=== PATIENT | female | born 1985 | race American Indian/Alaskan Native ===

== ENCOUNTER 2017-11-07 19:55 | Emergency (ER) | payer SELFPAY ==
[2017-11-07 22:30] LABS: Basophils % (Auto) 0.4 % (0.0-1.8); Eosinophils % (Auto) 0.6 % (0.0-4.3); Hematocrit 41.3 % (30.3-42.9); Hemoglobin 13.9 gm/dl (10.1-14.3); Lymphocytes # (Auto) 1.2 K/mm3 (1.2-5.4); Mean Corpuscular HGB Conc 34 % (30-34); Mean Corpuscular Hemoglobin 31 pg (28-32); Mean Corpuscular Volume 91 fl (79-97); Monocytes # (Auto) 0.5 K/mm3 (0.0-0.8); Monocytes % (Auto) 6.8 % (0.0-7.3); Platelet Count 288 K/mm3 (140-440); Red Blood Count 4.54 M/mm3 (3.65-5.03); Red Cell Distribution Width 12.8 % (13.2-15.2)
[2017-11-07 22:42] LABS: Alanine Aminotransferase 11 units/L (7-56); Albumin 4.4 g/dL (3.9-5); BUN/Creatinine Ratio 15; Blood Urea Nitrogen 9 mg/dL (7-17); Calcium 9.3 mg/dL (8.4-10.2); Hemolysis Index 8
[2017-11-07 22:58] LABS: Bacteria,Urine 1+ /HPF (Negative); Bilirubin,Urine NEG (Negative); Blood,Urine MOD (Negative); Color,Urine Yellow (Yellow); Mucus,Urine FEW /HPF; Nitrite,Urine NEG (Negative); Protein,Urine <15 mg/dL mg/dL (Negative); Urobilinogen,Urine < 2.0 mg/dL (<2.0)
[2017-11-08] MEDS ORDERED: MOTRIN ONE (01:17)
[2017-11-08] MEDS ORDERED: MOTRIN PO ONE (01:23)
[2017-11-08] MEDS ORDERED: ZOFRAN IV ONE (02:00)
[2017-11-08] MEDS ORDERED: REGLAN IV ONE (02:00)
[2017-11-08] MEDS ORDERED: BENADRYL IV ONE (02:00)
[2017-11-08] MEDS ORDERED: ZOFRAN ONE (02:03)
[2017-11-08] MEDS ORDERED: BENADRYL ONE (02:03)
[2017-11-08] MEDS ORDERED: REGLAN ONE (02:03)
--- NOTE | 2017-11-08 03:04 | Emergency Department Report ---
Minor Respiratory - HPI Chief Complaint: Upper Respiratory Infection Stated Complaint: BODY PAIN VOMITING/COUGH/DELCID Time Seen by Provider: 11/08/17 02:34 Duration: 3 Days Severity: moderate Minor Respiratory: Yes Able to Tolerate Fluids, Yes Cough, Yes Fever, No Rhinorrhea, No Sore Throat, No Ear Pain, No Sick Contacts, No Hemoptysis, No Chest Pain, No Shortness of Breath ED Review of Systems ROS: Stated complaint: BODY PAIN VOMITING/COUGH/DELCID Other details as noted in HPI Constitutional: denies: chills, fever Eyes: denies: eye pain, eye discharge, vision change ENT: denies: ear pain, throat pain Respiratory: cough. denies: shortness of breath, wheezing Cardiovascular: denies: chest pain, palpitations Endocrine: no symptoms reported Gastrointestinal: denies: abdominal pain, nausea, diarrhea Genitourinary: denies: urgency, dysuria, discharge Musculoskeletal: denies: back pain, joint swelling, arthralgia Skin: denies: rash, lesions Neurological: denies: headache, weakness, paresthesias Psychiatric: denies: anxiety, depression Hematological/Lymphatic: denies: easy bleeding, easy bruising ED Past Medical Hx - Past Medical History Hx Hypertension: No Hx Diabetes: No Hx Deep Vein Thrombosis: No Hx Renal Disease: No Hx Sickle Cell Disease: No Hx Headaches / Migraines: Yes (migraines) Hx Seizures: No Hx Asthma: No Hx HIV: No - Surgical History Past Surgical History?: Yes Additional Surgical History: Tubes tied 2015 - Social History Smoking Status: Never Smoker Substance Use Type: None - Medications Home Medications: Home Medications Medication Instructions Recorded Confirmed Last Taken Type Ibuprofen [Motrin 800 MG tab] 800 mg PO PRN PRN 10/19/15 10/20/15 10/17/15 History Norgestimate-Ethinyl Estradiol 1 tab PO DAILY 10/19/15 10/20/15 10/18/15 History [Sprintec 28 Day Tablet] Tramadol HCl [traMADol] 50 mg PO PRN PRN 10/19/15 10/20/15 10/18/15 History Ibuprofen [Motrin] 800 mg PO Q8HR PRN #30 tablet 11/08/17 Unknown Rx Nitrofurantoin Monohyd/M-Cryst 100 mg PO BID #14 capsule 11/08/17 Unknown Rx [Macrobid 100 mg Capsule] guaiFENesin [Robitussin] 200 mg PO Q4HR #80 ml 11/08/17 Unknown Rx Minor Respiratory Exam - Exam General: Vital signs noted. No distress. Alert and acting appropriately. HEENT: Yes Moist Mucous Membranes, No Pharyngeal Erythema, No Pharyngeal Exudates, No Rhinorrhea, No Conjuctival Injection, No Frontal Tenderness, No Maxillary Tenderness Ear: Neither TM Bulge, Neither TM Erythema, Neither EAC Pain, Neither EAC Discharge Neck: Yes Supple, No Adenopathy Lungs: Yes Good Air Exchange, No Wheezes, No Ronchi, No Stridor, No Cough, No Labored Respirations, No Retractions, No Use of Accessory Muscles, No Other Abnormal Lung Sounds Heart: Yes Regular, No Murmur Abdomen: Yes Normal Bowel Sounds, No Tenderness, No Peritoneal Signs Skin: No Rash, No Edema Neurologic: Alert and oriented, no deficits. Musculoskeletal: Unremarkable. ED Course Vital Signs 11/07/17 11/07/17 21:55 22:00 Temperature 99.7 F H 99.7 F H Pulse Rate 119 H 119 H Respiratory 22 Rate Blood Pressure 144/98 Blood Pressure 144/98 [Left] O2 Sat by Pulse 99 99 Oximetry ED Medical Decision Making - Lab Data Result diagrams: 11/07/17 22:09 11/07/17 22:09 Temp Pulse Resp BP Pulse Ox 99.7 F H 119 H 22 144/98 99 11/07/17 22:00 11/07/17 22:00 11/07/17 22:00 11/07/17 22:00 11/07/17 22:00 Laboratory Tests 11/07/17 11/07/17 11/07/17 22:09 22:09 Unknown WBC 6.7 RBC 4.54 Hgb 13.9 Hct 41.3 MCV 91 MCH 31 MCHC 34 RDW 12.8 L Plt Count 288 Lymph % (Auto) 18.0 [place] % (Auto) 6.8 Eos % (Auto) 0.6 Baso % (Auto) 0.4 Lymph # 1.2 [place] # 0.5 Eos # 0.0 Baso # 0.0 Seg Neutrophils % 74.2 H Seg Neutrophils # 5.0 Sodium 136 L Potassium 3.4 L Chloride 99.9 Carbon Dioxide 23 Anion Gap 17 BUN 9 Creatinine 0.6 L Estimated GFR > 60 BUN/Creatinine Ratio 15 Glucose 115 H Calcium 9.3 Total Bilirubin 0.30 AST 11 ALT 11 Alkaline Phosphatase 53 Total Protein 7.5 Albumin 4.4 Albumin/Globulin Ratio 1.4 Urine Color Yellow Urine Turbidity Clear Urine pH 6.0 Ur Specific [place] 1.023 Urine Protein <15 mg/dl Urine Glucose (UA) Neg Urine Ketones Neg Urine Blood Mod Urine Nitrite Neg Ur Reducing Substances Not Reportable Urine Bilirubin Neg Urine Ictotest Not Reportable Urine Urobilinogen < 2.0 Ur Leukocyte Esterase Lg Urine WBC (Auto) 55.0 H Urine RBC (Auto) 16.0 U Epithel Cells (Auto) 11.0 Urine Bacteria (Auto) 1+ Urine Mucus Few Influenza A (Rapid) Influenza B (Rapid) 11/08/17 Unknown WBC RBC Hgb Hct MCV MCH MCHC RDW Plt Count Lymph % (Auto) [place] % (Auto) Eos % (Auto) Baso % (Auto) Lymph # [place] # Eos # Baso # Seg Neutrophils % Seg Neutrophils # Sodium Potassium Chloride Carbon Dioxide Anion Gap BUN Creatinine Estimated GFR BUN/Creatinine Ratio Glucose Calcium Total Bilirubin AST ALT Alkaline Phosphatase Total Protein Albumin Albumin/Globulin Ratio Urine Color Urine Turbidity Urine pH Ur Specific [place] Urine Protein Urine Glucose (UA) Urine Ketones Urine Blood Urine Nitrite Ur Reducing Substances Urine Bilirubin Urine Ictotest Urine Urobilinogen Ur Leukocyte Esterase Urine WBC (Auto) Urine RBC (Auto) U Epithel Cells (Auto) Urine Bacteria (Auto) Urine Mucus Influenza A (Rapid) Negative Influenza B (Rapid) Negative - Radiology Data Radiology results: report reviewed, image reviewed FINAL REPORT EXAM: XR CHEST ROUTINE 2V HISTORY: prod cough/fever COMPARISON: None available. FINDINGS:: Frontal and lateral views of the chest obtained. Cardiac silhouette is within normal limits. No focal consolidation or effusion. No pneumothorax. Visualized bony thorax is grossly intact. IMPRESSION:: No acute findings. Transcribed By: LMA Dictated By: NADIA ESTRELLA MD Electronically Authenticated By: NADIA ESTRELLA MD Signed Date/Time: 11/07/17 9731 - Medical Decision Making 32-year-old female presents with flulike symptoms. Fever resolved no fever during the ED stay. All labs within normal limits, rapid flu test negative, patient received IV Reglan and Benadryl for headache Patient was better after administration of medication. I discussed patient's findings with the patient Discussed with pt symptomatic relief with [id number] medications. Discussed continue Tylenol and Motrin as needed for fever and pain. Discussed increase fluids and diet intake. Discussed rest much needed. Discussed daily vitamin C for immune booster. Discussed follow-up with refrigeration insulator in 3-5 days. Patient verbally states she understands and will comply the following instructions and follow-up Vital signs stable. Patient is in no acute distress Critical care attestation.: If time is entered above; I have spent that time in minutes in the direct care of this critically ill patient, excluding procedure time. ED Disposition Clinical Impression: Viral syndrome URI (upper respiratory infection) Qualifiers: URI type: unspecified URI Qualified Code(s): J06.9 - Acute upper respiratory infection, unspecified UTI (urinary tract infection) Qualifiers: Urinary tract infection type: acute cystitis Hematuria presence: without hematuria Qualified Code(s): N30.00 - Acute cystitis without hematuria Disposition: TO HOME OR SELFCARE Is pt being admited?: No Does the pt Need Aspirin: No Condition: Stable Instructions: Urinary Tract Infection in Women (ED), Upper Respiratory Infection (ED), Viral Syndrome (ED) Additional Instructions: Make sure to follow up with the primary care physician as discussed. Take all your medications as you've been prescribed. If you have any worsening symptoms or develop new symptoms please return to ED immediately. Prescriptions: guaiFENesin [Robitussin] 200 mg PO Q4HR #80 ml Ibuprofen [Motrin] 800 mg PO Q8HR PRN #30 tablet PRN Reason: Pain Nitrofurantoin Monohyd/M-Cryst [Macrobid 100 mg Capsule] 100 mg PO BID #14 capsule Referrals: PEDRO ANGELES MD [Primary Care Provider] - 3-5 Days [facility] [Outside] - 3-5 Days [facility] [Outside] - 3-5 Days [facility] [Outside] - 3-5 Days Forms: Accompanied Note, Work/School Release Form(ED) Time of Disposition: 03:35
--- NOTE | 2017-11-08 03:20 | XRay Report ---
FINAL REPORT EXAM: XR CHEST ROUTINE 2V HISTORY: prod cough/fever COMPARISON: None available. FINDINGS:: Frontal and lateral views of the chest obtained. Cardiac silhouette is within normal limits. No focal consolidation or effusion. No pneumothorax. Visualized bony thorax is grossly intact. IMPRESSION:: No acute findings.
[2017-11-08 03:58] VITALS: BP 110/77
== END 2017-11-08 03:56 | disposition home or self-care (01) ==
LOC: ED 19:55
DX: J06.9 Acute upper respiratory infection, unspecified (principal); N39.0 Urinary tract infection, site not specified; B34.9 Viral infection, unspecified; G43.909 Migraine, unspecified, not intractable, without status migrainosus
CPT/HCPCS: 36415; 71046; 80053; 81001; 81025; 85025; 87400; 96374; 96375; 99284; J1200; J2405; J2765

== ENCOUNTER 2020-07-20 10:38 | Emergency (ER) | payer MEDICAID ==
[2020-07-20 10:46] VITALS: BP 122/35
[2020-07-20 11:35] LABS: HCG Qualitative,Urine Negative (Negative)
[2020-07-20 11:40] LABS: Bilirubin,Urine NEG (Negative); Blood,Urine LG (Negative); Color,Urine Straw (Yellow); Mucus,Urine FEW /HPF; Protein,Urine <15 mg/dL mg/dL (Negative); Urobilinogen,Urine < 2.0 mg/dL (<2.0)
[2020-07-20 11:42] LABS: RBC,Urine > 182.0 /HPF (0.0-6.0)
[2020-07-20] MEDS ORDERED: HYDROcodone/ACETAMINOPHEN 5-325 MG TAB PO ONE (12:37)
--- NOTE | 2020-07-20 13:01 | Emergency Department Report ---
ED General Adult HPI - General Chief complaint: Urogenital-Female Stated complaint: BLOOD URINE/ABD PAIN/DISCHARGE Time Seen by Provider: 07/20/20 12:29 Source: patient Mode of arrival: Ambulatory Limitations: No Limitations - History of Present Illness Initial comments: Patient is a 35-year-old female presents emergency room with complaints of lower abdominal pain that began 2 days ago. She states that she also has lower back pain and hematuria. Patient states that 3 days ago she had vaginal discharge. She states that she has intermittently had nausea, vomiting, diarrhea. Patient states that 2 weeks ago she was diagnosed with trichomonas and completed a course of Flagyl. She denies any fever, chest pain, shortness of breath, cough. She has a past medical history of A. fib and hypertension. She is on Eliquis. She denies any allergies to medications. Severity scale (0 -10): 8 - Related Data Home Medications Medication Instructions Recorded Confirmed Last Taken Ibuprofen [Motrin 800 MG tab] 800 mg PO PRN PRN 10/19/15 10/20/15 10/17/15 Norgestimate-Ethinyl Estradiol 1 tab PO DAILY 10/19/15 10/20/15 10/18/15 [Sprintec 28 Day Tablet] Tramadol HCl [traMADol] 50 mg PO PRN PRN 10/19/15 10/20/15 10/18/15 Previous Rx's Medication Instructions Recorded Last Taken Type Ibuprofen [Motrin] 800 mg PO Q8HR PRN #30 tablet 11/08/17 Unknown Rx Nitrofurantoin Monohyd/M-Cryst 100 mg PO BID #14 capsule 11/08/17 Unknown Rx [Macrobid 100 mg Capsule] guaiFENesin [Robitussin] 200 mg PO Q4HR #80 ml 11/08/17 Unknown Rx Acetaminophen/Codeine [Tylenol 1 tab PO Q6H PRN #7 tab 07/20/20 Unknown Rx /Codeine # 3 tab] metroNIDAZOLE [metroNIDAZOLE 0.75% 1 applic TP QHS 5 Days gel..gram. 07/20/20 Unknown Rx gel TOPICAL] Allergies Allergy/AdvReac Type Severity Reaction Status Date / Time latex AdvReac Intermediate Rash Verified 10/19/15 11:01 ED Review of Systems ROS: Stated complaint: BLOOD URINE/ABD PAIN/DISCHARGE Other details as noted in HPI Comment: All other systems reviewed and negative ED Past Medical Hx - Past Medical History Previous Medical History?: Yes Hx Hypertension: Yes Hx Diabetes: No Hx Deep Vein Thrombosis: No Hx Renal Disease: No Hx Sickle Cell Disease: No Hx Headaches / Migraines: Yes (migraines) Hx Seizures: No Hx Asthma: No Hx HIV: No Additional medical history: A fib - Surgical History Past Surgical History?: Yes Additional Surgical History: Tubal ligation 2015 - Social History Smoking Status: Never Smoker Substance Use Type: None - Medications Home Medications: Home Medications Medication Instructions Recorded Confirmed Last Taken Type Ibuprofen [Motrin 800 MG tab] 800 mg PO PRN PRN 10/19/15 10/20/15 10/17/15 History Norgestimate-Ethinyl Estradiol 1 tab PO DAILY 10/19/15 10/20/15 10/18/15 History [Sprintec 28 Day Tablet] Tramadol HCl [traMADol] 50 mg PO PRN PRN 10/19/15 10/20/15 10/18/15 History Ibuprofen [Motrin] 800 mg PO Q8HR PRN #30 tablet 11/08/17 Unknown Rx Nitrofurantoin Monohyd/M-Cryst 100 mg PO BID #14 capsule 11/08/17 Unknown Rx [Macrobid 100 mg Capsule] guaiFENesin [Robitussin] 200 mg PO Q4HR #80 ml 11/08/17 Unknown Rx Acetaminophen/Codeine [Tylenol 1 tab PO Q6H PRN #7 tab 07/20/20 Unknown Rx /Codeine # 3 tab] metroNIDAZOLE [metroNIDAZOLE 0.75% 1 applic TP QHS 5 Days gel..gram. 07/20/20 Unknown Rx gel TOPICAL] ED Physical Exam - General Limitations: No Limitations General appearance: alert, in no apparent distress - Head Head exam: Present: atraumatic, normocephalic - Eye Eye exam: Present: normal appearance - ENT ENT exam: Present: mucous membranes moist - Respiratory Respiratory exam: Present: normal lung sounds bilaterally. Absent: respiratory distress, wheezes, rales, rhonchi, stridor, chest wall tenderness, accessory muscle use, decreased breath sounds, prolonged expiratory - Cardiovascular Cardiovascular Exam: Present: regular rate, normal rhythm, normal heart sounds. Absent: systolic murmur, diastolic murmur, rubs, gallop - GI/Abdominal GI/Abdominal exam: Present: soft, normal bowel sounds. Absent: distended, tenderness, guarding, rebound, rigid - External exam: Present: other (external body piercings). Absent: erythema, swelling, lesions, lacerations, ecchymosis, bleeding Speculum exam: Present: vaginal discharge (white), cervical discharge (white), other (quad stayer: HAVEN coker). Absent: erythema, vaginal bleeding, foreign body, tissue, laceration Bi-manual exam: Present: normal bi-manual exam. Absent: cervical motion tendernes, adnexal tenderness, adnexal mass - Back Exam Back exam: Present: CVA tenderness (R) (mild), CVA tenderness (L) (mild) - Neurological Exam Neurological exam: Present: alert, oriented X3 - Psychiatric Psychiatric exam: Present: normal affect, normal mood - Skin Skin exam: Present: warm, dry, intact ED Course Vital Signs 07/20/20 10:45 Temperature 99.4 F Pulse Rate 67 Respiratory 16 Rate Blood Pressure 122/35 [Right] O2 Sat by Pulse 98 Oximetry ED Medical Decision Making - Lab Data Result diagrams: 07/20/20 13:06 07/20/20 13:06 Lab Results 07/20/20 07/20/20 07/20/20 Range/Units 11:04 13:06 13:06 WBC 3.5 L (4.5-11.0) K/mm3 RBC 4.24 (3.65-5.03) M/mm3 Hgb 12.8 (10.1-14.3) gm/dl Hct 38.8 (30.3-42.9) % MCV 92 (79-97) fl MCH 30 (28-32) pg MCHC 33 (30-34) % RDW 14.7 (13.2-15.2) % Plt Count 342 (140-440) K/mm3 Lymph % (Auto) 45.4 H (13.4-35.0) % [place] % (Auto) 7.6 H (0.0-7.3) % Eos % (Auto) 3.7 (0.0-4.3) % Baso % (Auto) 1.1 (0.0-1.8) % Lymph # (Auto) 1.6 (1.2-5.4) K/mm3 [place] # (Auto) 0.3 (0.0-0.8) K/mm3 Eos # (Auto) 0.1 (0.0-0.4) K/mm3 Baso # (Auto) 0.0 (0.0-0.1) K/mm3 Seg Neutrophils % 42.2 (40.0-70.0) % Seg Neutrophils # 1.5 L (1.8-7.7) K/mm3 PT 14.9 (12.2-14.9) Sec. INR 1.15 H (0.87-1.13) APTT 33.3 (24.2-36.6) Sec. Sodium (137-145) mmol/L Potassium (3.6-5.0) mmol/L Chloride (98-107) mmol/L Carbon Dioxide (22-30) mmol/L Anion Gap mmol/L BUN (7-17) mg/dL Creatinine (0.6-1.2) mg/dL Estimated GFR ml/min BUN/Creatinine Ratio % Glucose (65-100) mg/dL Calcium (8.4-10.2) mg/dL Total Bilirubin (0.1-1.2) mg/dL AST (5-40) units/L ALT (7-56) units/L Alkaline Phosphatase (35-129) units/L Total Protein (6.3-8.2) g/dL Albumin (3.9-5) g/dL Albumin/Globulin Ratio % Lipase (13-60) units/L Urine Color Straw (Yellow) Urine Turbidity Hazy (Clear) Urine pH 8.0 H (5.0-7.0) Ur Specific [place] 1.018 (1.003-1.030) Urine Protein <15 mg/dl (Negative) mg/dL Urine Glucose (UA) Neg (Negative) mg/dL Urine Ketones Neg (Negative) mg/dL Urine Blood Lg (Negative) Urine Nitrite Neg (Negative) Ur Reducing Substances Not Reportable Urine Bilirubin Neg (Negative) Urine Ictotest Not Reportable Urine Urobilinogen < 2.0 (<2.0) mg/dL Ur Leukocyte Esterase Neg (Negative) Urine WBC (Auto) 3.0 (0.0-6.0) /HPF Urine RBC (Auto) > 182.0 (0.0-6.0) /HPF U Epithel Cells (Auto) 3.0 (0-13.0) /HPF Urine Mucus Few /HPF Urine HCG, Qual Negative (Negative) 07/20/20 Range/Units 13:06 WBC (4.5-11.0) K/mm3 RBC (3.65-5.03) M/mm3 Hgb (10.1-14.3) gm/dl Hct (30.3-42.9) % MCV (79-97) fl MCH (28-32) pg MCHC (30-34) % RDW (13.2-15.2) % Plt Count (140-440) K/mm3 Lymph % (Auto) (13.4-35.0) % [place] % (Auto) (0.0-7.3) % Eos % (Auto) (0.0-4.3) % Baso % (Auto) (0.0-1.8) % Lymph # (Auto) (1.2-5.4) K/mm3 [place] # (Auto) (0.0-0.8) K/mm3 Eos # (Auto) (0.0-0.4) K/mm3 Baso # (Auto) (0.0-0.1) K/mm3 Seg Neutrophils % (40.0-70.0) % Seg Neutrophils # (1.8-7.7) K/mm3 PT (12.2-14.9) Sec. INR (0.87-1.13) APTT (24.2-36.6) Sec. Sodium 138 (137-145) mmol/L Potassium 4.1 (3.6-5.0) mmol/L Chloride 103.2 (98-107) mmol/L Carbon Dioxide 22 (22-30) mmol/L Anion Gap 17 mmol/L BUN 10 (7-17) mg/dL Creatinine 0.7 (0.6-1.2) mg/dL Estimated GFR > 60 ml/min BUN/Creatinine Ratio 14 % Glucose 90 (65-100) mg/dL Calcium 9.1 (8.4-10.2) mg/dL Total Bilirubin 0.20 (0.1-1.2) mg/dL AST 13 (5-40) units/L ALT 14 (7-56) units/L Alkaline Phosphatase 46 (35-129) units/L Total Protein 7.1 (6.3-8.2) g/dL Albumin 4.2 (3.9-5) g/dL Albumin/Globulin Ratio 1.4 % Lipase 29 (13-60) units/L Urine Color (Yellow) Urine Turbidity (Clear) Urine pH (5.0-7.0) Ur Specific [place] (1.003-1.030) Urine Protein (Negative) mg/dL Urine Glucose (UA) (Negative) mg/dL Urine Ketones (Negative) mg/dL Urine Blood (Negative) Urine Nitrite (Negative) Ur Reducing Substances Urine Bilirubin (Negative) Urine Ictotest Urine Urobilinogen (<2.0) mg/dL Ur Leukocyte Esterase (Negative) Urine WBC (Auto) (0.0-6.0) /HPF Urine RBC (Auto) (0.0-6.0) /HPF U Epithel Cells (Auto) (0-13.0) /HPF Urine Mucus /HPF Urine HCG, Qual (Negative) - Radiology Data Radiology results: report reviewed CT abdomen pelvis wo con INDICATION: flank pain, abd pain, hematuria. TECHNIQUE: All CT scans at this location are performed using the following dose modulation technique: Automated exposure control. CONTRAST: None. COMPARISON: None available. CT ABDOMEN: Evaluation the parenchymal organs demonstrates a few 1 mm nonobstructing renal stones bilaterally. The remaining parenchymal organs are unremarkable. Negative for abdominal mass, fluid or stent. The bowel is not dilated or thickened. CT PELVIS: Negative for distal ureteral stone, pelvic fluid collection or inflammation. Previous bilateral tubal ligation. Chronic appearing inflammatory change within the subcutaneous tissues. IMPRESSION: Small, nonobstructing renal stones bilaterally. Signer Name: Cameron Brower MD Signed: 07/20/2020 1:17 PM Workstation Name: [id number] Transcribed By: ES Dictated By: Cameron Brower MD Electronically Authenticated By: Cameron Brower MD Signed Date/Time: 07/20/20 1317 DD/ 1309 TD/TT: - Medical Decision Making Patient is a 35-year-old female presents emergency room with complaints of lower abdominal pain that began 2 days ago. She states that she also has lower back pain and hematuria. Patient states that 3 days ago she had vaginal discharge. She states that she has intermittently had nausea, vomiting, diarrhea. Patient states that 2 weeks ago she was diagnosed with trichomonas and completed a course of Flagyl. She denies any fever, chest pain, shortness of breath, cough. She has a past medical history of A. fib and hypertension. She is on Eliquis. She denies any allergies to medications. Vitals are normal. On exam bilateral CVA tenderness, no abdominal tenderness, white vaginal/cervical discharge, no CMT, no adnexal tenderness or masses, quad stayer HAVEN Coker. Labs are stable. UA shows evidence of many red blood cells. Urine is negative. CT abd pelvis without contrast: IMPRESSION: Small, nonobstructing renal stones bilaterally. Wet prep shows evidence of bacterial vaginosis. G/C swab sent, offered pt prophylactic tx, and she states that she would like treatment. Patient given ceftriaxone and azithromycin while in the emergency department. Patient given prescription for MetroGel and Tylenol with codeine. Advised patient Please take medication as prescribed. do not drive or operate heavy machinery while taking pain medication. Please increase your water intake. Please go to medical records in 1 week for results of your test but you have been treated for these today. Please have any partner tested and treated as well. Avoid sexual intercourse for 10 days. please go to a clinic or the health department for a full STD panel. Follow-up with a primary care doctor. Follow-up with urologist. Return to emergency room for any new or worsening symptoms. - Differential Diagnosis Nephrolithiasis, UTI, STD, vaginitis, mass, cancer, fibroids, adenomyosis Critical care attestation.: If time is entered above; I have spent that time in minutes in the direct care of this critically ill patient, excluding procedure time. ED Disposition Clinical Impression: Lower abdominal pain, Bacterial vaginosis, Nephrolithiasis Lower back pain Qualifiers: Chronicity: acute Back pain laterality: bilateral Sciatica presence: without sciatica Qualified Code(s): M54.5 - Low back pain Hematuria Qualifiers: Hematuria type: unspecified type Qualified Code(s): R31.9 - Hematuria, unspecified Disposition: TO HOME OR SELFCARE Is pt being admited?: No Does the pt Need Aspirin: No Condition: Stable Instructions: Bacterial Vaginosis (ED), Kidney Stones (ED), Acute Hematuria (ED) Additional Instructions: Please take medication as prescribed. do not drive or operate heavy machinery while taking pain medication. Please increase your water intake. Please go to medical records in 1 week for results of your test but you have been treated for these today. Please have any partner tested and treated as well. Avoid sexual intercourse for 10 days. please go to a clinic or the health department for a full STD panel. Follow-up with a primary care doctor. Follow-up with urologist. Return to emergency room for any new or worsening symptoms. Prescriptions: metroNIDAZOLE [metroNIDAZOLE 0.75% gel TOPICAL] 1 applic TP QHS 5 Days gel..gram. Acetaminophen/Codeine [Tylenol /Codeine # 3 tab] 1 tab PO Q6H PRN #7 tab PRN Reason: Pain , Severe (7-10) Referrals: AVI PARSON MD [Primary Care Provider] - 2-3 Days MACK BETANCOURT MD [Staff Physician] - 2-3 Days Forms: STI Treatment and Prevention Time of Disposition: 14:36 Print Language: SLOVAK
--- NOTE | 2020-07-20 13:22 | Cat Scan Report ---
CT abdomen pelvis wo con INDICATION: flank pain, abd pain, hematuria. TECHNIQUE: All CT scans at this location are performed using the following dose modulation technique: Automated exposure control. CONTRAST: None. COMPARISON: None available. CT ABDOMEN: Evaluation the parenchymal organs demonstrates a few 1 mm nonobstructing renal stones john aterally. The remaining parenchymal organs are unremarkable. Negative for abdominal mass, fluid or stent. The bowel is not dilated or thickened. CT PELVIS: Negative for distal ureteral stone, pelvic fluid collection or inflammation. Previous bila teral tubal ligation. Chronic appearing inflammatory change within the subcutaneous tissues. IMPRESSION: Small, nonobstructing renal stones bilaterally. Signer Name: Cameron Brower MD Signed: 07/20/2020 1:17 PM Workstation Name: [id number]
[2020-07-20 13:40] LABS: Basophils % (Auto) 1.1 % (0.0-1.8); Eosinophils # (Auto) 0.1 K/mm3 (0.0-0.4); Eosinophils % (Auto) 3.7 % (0.0-4.3); Hematocrit 38.8 % (30.3-42.9); Hemoglobin 12.8 gm/dl (10.1-14.3); Lymphocytes # (Auto) 1.6 K/mm3 (1.2-5.4); Lymphocytes % (Auto) 45.4 % (13.4-35.0); Mean Corpuscular HGB Conc 33 % (30-34); Mean Corpuscular Volume 92 fl (79-97); Monocytes # (Auto) 0.3 K/mm3 (0.0-0.8); Monocytes % (Auto) 7.6 % (0.0-7.3); Platelet Count 342 K/mm3 (140-440); Red Blood Count 4.24 M/mm3 (3.65-5.03); Red Cell Distribution Width 14.7 % (13.2-15.2)
[2020-07-20 13:51] LABS: INR 1.15 (0.87-1.13)
[2020-07-20 13:52] LABS: Partial Thromboplastin Time 33.3 Sec. (24.2-36.6)
[2020-07-20 13:56] LABS: Alanine Aminotransferase 14 units/L (7-56); Albumin 4.2 g/dL (3.9-5); Blood Urea Nitrogen 10 mg/dL (7-17); Calcium 9.1 mg/dL (8.4-10.2); Hemolysis Index 8
[2020-07-20 13:59] LABS: BUN/Creatinine Ratio 14
[2020-07-20] MEDS ORDERED: LIDOCAINE-MPF (1%) 10 MG/1 ML VIAL 5 ML INFILTRATI ONE (14:12)
[2020-07-20] MEDS ORDERED: AZITHROMYCIN 250 MG TAB PO ONE (14:12)
== END 2020-07-20 14:45 | disposition home or self-care (01) ==
LOC: ED 10:38
DX: N76.0 Acute vaginitis (principal); N20.0 Calculus of kidney; M54.5 Low back pain; R10.30 Lower abdominal pain, unspecified; R31.9 Hematuria, unspecified; I10 Essential (primary) hypertension; I48.91 Unspecified atrial fibrillation; G43.909 Migraine, unspecified, not intractable, without status migrainosus; Z79.899 Other long term (current) drug therapy; Z91.040 Latex allergy status; Z98.51 Tubal ligation status
CPT/HCPCS: 36415; 74176; 80053; 81001; 81025; 83690; 85025; 85610; 85730; 87210; 87591; 96372; 99284; J0696